=== PATIENT | male | born 1995 | race Asian ===

== ENCOUNTER 2017-06-11 11:37 | Emergency (ER) | payer OTHER ==
[~2017-06-11] VITALS: Ht 170.2 cm; Wt 78.5 kg
[2017-06-11 11:43] VITALS: BP 123/77; TEMP 97.6
== END 2017-06-11 12:12 | disposition home or self-care (01) ==
LOC: ED 11:37
DX: H57.11 Ocular pain, right eye (principal); R09.81 Nasal congestion
CPT/HCPCS: 99281

== ENCOUNTER 2018-10-15 01:50 | Emergency (ER) | payer OTHER ==
[~2018-10-15] VITALS: Ht 170.2 cm; Wt 72.6 kg
[2018-10-15 03:18] VITALS: BP 134/71; TEMP 98
== END 2018-10-15 03:20 | disposition home or self-care (01) ==
LOC: ED 01:50
DX: S93.602A Unspecified sprain of left foot, initial encounter (principal); X50.1XXA Overexertion from prolonged static or awkward postures, initial encounter
CPT/HCPCS: 99282